=== PATIENT | female | born 1975 | race Caucasian/White ===

== ENCOUNTER 2017-07-20 06:54 | Emergency (ER) | payer MEDICAID | END 2017-07-20 08:45 | disposition home or self-care (01) | LOC: FTE 06:54 | DX: B86 Scabies (principal); J45.909 Unspecified asthma, uncomplicated | CPT/HCPCS: 99283; Z7502 ==

== ENCOUNTER 2018-01-26 10:18 | Emergency (ER) | payer MEDICAID ==
[2018-01-26] MEDS: ONDANSETRON 4 MG INJ IV (11:23)
[2018-01-26] MEDS: morphine 4 MG/ML VIAL IV (11:24)
[2018-01-26 11:42] LABS: ADD MAN DIFF? NO
[2018-01-26 11:50] LABS: BASOPHILS % 0.8 % (0.0-2.0); EOSINOPHILS # 0.2 10^3/ul (0.0-0.5); EOSINOPHILS % 4.6 % (0.0-7.0); HEMATOCRIT 33.5 % (37.0-47.0); HEMOGLOBIN 10.3 g/dl (12.0-16.0); IMMATURE GRANS #M 0.01 10^3/ul; IMMATURE GRANS % (M) 0.2 %; LYMPHOCYTES # 1.8 10^3/ul (0.8-2.9); LYMPHOCYTES % 35.4 % (15.0-51.0); MEAN CORPUSCULAR HEMOGLOBIN 24.2 pg (29.0-33.0); MEAN CORPUSCULAR HGB CONC 30.7 g/dl (32.0-37.0); MEAN CORPUSCULAR VOLUME 78.6 fl (82.0-101.0); MEAN PLATELET VOLUME 11.8 fl (7.4-10.4); MONOCYTE # 0.5 10^3/ul (0.3-0.9); MONOCYTES % 10.9 % (0.0-11.0); NEUTROPHIL # 2.4 10^3/ul (1.6-7.5); NEUTROPHILS % 48.1 % (39.0-77.0); PLATELET COUNT 255 10^3/UL (140-415); RED BLOOD COUNT 4.26 10^6/ul (4.20-5.40); RED CELL DISTRIBUTION WIDTH 15.7 % (11.5-14.5)
[2018-01-26 12:04] LABS: ADD UMIC YES; UR ASCORBIC ACID NEGATIVE (NEGATIVE); UR BACTERIA FEW /HPF (NONE SEEN); UR BILIRUBIN (Dip) NEGATIVE (NEGATIVE); UR BLOOD (Dip) NEGATIVE (NEGATIVE); UR CLARITY SLIGHTLY CLOUDY (CLEAR); UR COLOR YELLOW (YELLOW); UR GLUCOSE (Dip) NEGATIVE (NEGATIVE); UR KETONES (Dip) NEGATIVE (NEGATIVE); UR LEUKOCYTE ESTERASE (Dip) 2+ Leu/ul (NEGATIVE); UR MUCUS MANY /HPF (NONE SEEN); UR NITRITE (Dip) NEGATIVE (NEGATIVE); UR RBC 5 /HPF (0-5); UR SPECIFIC GRAVITY (Dip) 1.025 (1.003-1.030); UR SQUAMOUS EPITHELIAL CELL MODERATE /HPF (FEW); UR TOTAL PROTEIN (Dip) NEGATIVE (NEGATIVE); UR UROBILINOGEN (Dip) NEGATIVE (NEGATIVE); UR WBC 4 /HPF (0-5)
[2018-01-26 12:15] LABS: ALANINE AMINOTRANSFERASE 20 IU/L (13-69); ALBUMIN 3.9 g/dl (3.3-4.9); ALBUMIN/GLOBULIN RATIO 1.25; ALKALINE PHOSPHATASE 69 IU/L (42-121); ANION GAP 13 (8-16); ASPARTATE AMINO TRANSFERASE 29 IU/L (15-46); BILIRUBIN,INDIRECT 0.3 mg/dl (0-1.1); BILIRUBIN,TOTAL 0.3 mg/dl (0.2-1.3); BLOOD UREA NITROGEN 15 mg/dl (7-20); CARBON DIOXIDE 26 mmol/L (21-31); CHLORIDE 108 mmol/L (97-110); CREATININE 0.79 mg/dl (0.44-1.00); GLUCOSE 86 mg/dl (70-220); LIPASE 65 U/L (23-300); SODIUM 143 mmol/L (135-144)
[2018-01-26] MEDS: SOD CHLORIDE 0.9% 100 ML (12:21)
[2018-01-26] MEDS: IOHEXOL 300MG/ML 150 ML BTL (12:21)
== END 2018-01-26 14:32 | disposition home or self-care (01) ==
LOC: FTE 10:18
DX: D25.1 Intramural leiomyoma of uterus (principal); J45.909 Unspecified asthma, uncomplicated
CPT/HCPCS: 36415; 74177; 80053; 81001; 81025; 83690; 84703; 85025; 96374; 96375; 99285-25

== ENCOUNTER 2018-02-26 10:28 | Emergency (ER) | payer MEDICAID ==
[2018-02-26] MEDS: KETOROLAC 60 MG INJ IM (12:56)
[2018-02-26] MEDS: ONDANSETRON (ODT) 4 MG TAB ODT (12:56)
== END 2018-02-26 13:25 | disposition home or self-care (01) ==
LOC: FTE 10:28
DX: R51 Headache (principal); R11.2 Nausea with vomiting, unspecified; J45.909 Unspecified asthma, uncomplicated
CPT/HCPCS: 70450; 81025; 96372; 99285-25

== ENCOUNTER 2018-08-10 09:56 | Emergency (ER) | payer MEDICAID ==
[2018-08-10] MEDS: KETOROLAC 60 MG INJ IM (11:48)
== END 2018-08-10 13:25 | disposition home or self-care (01) ==
LOC: FTE 09:56
DX: M25.562 Pain in left knee (principal); M25.561 Pain in right knee; J45.909 Unspecified asthma, uncomplicated
CPT/HCPCS: 73562; 73562-50; 81025; 96372; 99284-25

== ENCOUNTER 2018-11-10 15:37 | Emergency (ER) | payer MEDICAID ==
[2018-11-10] MEDS: DEXAMETHASONE 10 MG/ML 1 ML INJ IM (16:04)
[2018-11-10 16:30] LABS: ADD MAN DIFF? NO
[2018-11-10 16:31] LABS: WHITE BLOOD COUNT 5.4 10^3/ul (4.8-10.8)
[2018-11-10 16:31] LABS: BASOPHILS % 0.7 % (0.0-2.0); EOSINOPHILS # 0.3 10^3/ul (0.0-0.5); EOSINOPHILS % 5.4 % (0.0-7.0); HEMATOCRIT 39.4 % (37.0-47.0); HEMOGLOBIN 12.8 g/dl (12.0-16.0); LYMPHOCYTES # 1.7 10^3/ul (0.8-2.9); LYMPHOCYTES % 30.6 % (15.0-51.0); MEAN CORPUSCULAR HEMOGLOBIN 28.8 pg (29.0-33.0); MEAN CORPUSCULAR HGB CONC 32.5 g/dl (32.0-37.0); MEAN CORPUSCULAR VOLUME 88.5 fl (82.0-101.0); MEAN PLATELET VOLUME 11.3 fl (7.4-10.4); MONOCYTE # 0.5 10^3/ul (0.3-0.9); MONOCYTES % 8.9 % (0.0-11.0); NEUTROPHIL # 2.9 10^3/ul (1.6-7.5); NEUTROPHILS % 54.2 % (39.0-77.0); PLATELET COUNT 220 10^3/UL (140-415); RED BLOOD COUNT 4.45 10^6/ul (4.20-5.40); RED CELL DISTRIBUTION WIDTH 13.5 % (11.5-14.5)
[2018-11-10 16:50] LABS: INR 0.91; PROTIME 12.4 Sec (11.9-14.9)
[2018-11-10 16:51] LABS: PARTIAL THROMBOPLASTIN TIME 28.8 Sec (23.0-35.0)
[2018-11-10 17:01] LABS: ALANINE AMINOTRANSFERASE 17 IU/L (13-69); ALBUMIN 3.8 g/dl (3.3-4.9); ALBUMIN/GLOBULIN RATIO 1.26; ALKALINE PHOSPHATASE 70 IU/L (42-121); ANION GAP 8 (5-13); ASPARTATE AMINO TRANSFERASE 24 IU/L (15-46); BILIRUBIN,INDIRECT 0.4 mg/dl (0-1.1); BILIRUBIN,TOTAL 0.4 mg/dl (0.2-1.3); BLOOD UREA NITROGEN 13 mg/dl (7-20); CALCIUM 9.2 mg/dl (8.4-10.2); CARBON DIOXIDE 22 mmol/L (21-31); CHLORIDE 111 mmol/L (97-110); CREATININE 0.61 mg/dl (0.44-1.00); Estimated GFR > 60 mL/min (>60); GLUCOSE 81 mg/dl (70-220); POTASSIUM 3.9 mmol/L (3.5-5.1); SODIUM 141 mmol/L (135-144); TOTAL PROTEIN 6.8 g/dl (6.1-8.1)
== END 2018-11-10 18:08 | disposition home or self-care (01) ==
LOC: FTE 15:37
DX: R21 Rash and other nonspecific skin eruption (principal); J45.909 Unspecified asthma, uncomplicated
CPT/HCPCS: 80053; 85025; 85610; 85730; 96372; 99284-25

== ENCOUNTER 2018-11-20 05:47 | Emergency (ER) | payer MEDICAID ==
[2018-11-20] MEDS: ALBUTEROL 0.083% (NEB) 2.5 MG/3 ML AMP HHN (06:22)
[2018-11-20] MEDS: IPRATROPIUM (NEB) 0.5 MG/2.5 ML AMP HHN (06:22)
[2018-11-20] MEDS: METHYLPREDNISOLONE 125 MG INJ IV (06:41)
[2018-11-20] MEDS: IBUPROFEN 800 MG TAB PO (06:49)
[2018-11-20] MEDS: KETOROLAC 30 MG INJ IV (07:00)
== END 2018-11-20 07:36 | disposition home or self-care (01) ==
LOC: FTE 05:47
DX: J45.901 Unspecified asthma with (acute) exacerbation (principal)
CPT/HCPCS: 81025; 94664; 96374; 96375; 99284-25

== ENCOUNTER 2019-01-01 16:06 | Emergency (ER) | payer MEDICAID ==
[2019-01-01] MEDS: ONDANSETRON 4 MG INJ IV (17:30)
[2019-01-01] MEDS: morphine 2 MG INJ IV (17:30)
[2019-01-01] MEDS: FAMOTIDINE 20 MG TAB PO (17:30)
[2019-01-01] MEDS: SOD CHLORIDE 0.9% 1,000 ML IV (17:30)
[2019-01-01 17:41] LABS: URINE BLOOD (Dip) POC Negative (NEGATIVE); URINE GLUCOSE (Dip) POC Negative (NEGATIVE); URINE KETONES (Dip) POC 1+ (NEGATIVE); URINE LEUKOCYTE EST (Dip) POC Negative (NEGATIVE); URINE NITRITE (Dip) POC Negative (NEGATIVE); URINE TOTAL PROTEIN POC Trace (NEGATIVE)
[2019-01-01 17:55] LABS: ADD MAN DIFF? NO
[2019-01-01 17:57] LABS: WHITE BLOOD COUNT 6.6 10^3/ul (4.8-10.8)
[2019-01-01 17:57] LABS: BASOPHIL # 0.1 10^3/ul (0.0-0.1); BASOPHILS % 0.8 % (0.0-2.0); EOSINOPHILS # 0.3 10^3/ul (0.0-0.5); EOSINOPHILS % 4.9 % (0.0-7.0); HEMATOCRIT 36.8 % (37.0-47.0); LYMPHOCYTES % 30.1 % (15.0-51.0); MEAN CORPUSCULAR HEMOGLOBIN 29.6 pg (29.0-33.0); MEAN CORPUSCULAR HGB CONC 32.6 g/dl (32.0-37.0); MEAN CORPUSCULAR VOLUME 90.6 fl (82.0-101.0); MEAN PLATELET VOLUME 11.8 fl (7.4-10.4); MONOCYTE # 0.7 10^3/ul (0.3-0.9); MONOCYTES % 10.1 % (0.0-11.0); NEUTROPHIL # 3.5 10^3/ul (1.6-7.5); NEUTROPHILS % 53.8 % (39.0-77.0); PLATELET COUNT 184 10^3/UL (140-415); RED BLOOD COUNT 4.06 10^6/ul (4.20-5.40); RED CELL DISTRIBUTION WIDTH 13.4 % (11.5-14.5)
[2019-01-01 18:28] LABS: ALANINE AMINOTRANSFERASE 22 IU/L (13-69); ALBUMIN 3.8 g/dl (3.3-4.9); ALBUMIN/GLOBULIN RATIO 1.22; ALKALINE PHOSPHATASE 63 IU/L (42-121); ANION GAP 6 (5-13); ASPARTATE AMINO TRANSFERASE 26 IU/L (15-46); BILIRUBIN,INDIRECT 0.5 mg/dl (0-1.1); BILIRUBIN,TOTAL 0.5 mg/dl (0.2-1.3); BLOOD UREA NITROGEN 20 mg/dl (7-20); CALCIUM 9.4 mg/dl (8.4-10.2); CARBON DIOXIDE 29 mmol/L (21-31); CHLORIDE 103 mmol/L (97-110); CREATININE 0.75 mg/dl (0.44-1.00); Estimated GFR > 60 mL/min (>60); GLUCOSE 83 mg/dl (70-220); LIPASE 121 U/L (23-300); POTASSIUM 4.3 mmol/L (3.5-5.1); SODIUM 138 mmol/L (135-144); TOTAL PROTEIN 6.9 g/dl (6.1-8.1)
[2019-01-01] MEDS: KETOROLAC 30 MG INJ IV (19:46)
== END 2019-01-01 20:12 | disposition home or self-care (01) ==
LOC: E/R 16:06
DX: R10.13 Epigastric pain (principal); R19.09 Other intra-abdominal and pelvic swelling, mass and lump; D21.9 Benign neoplasm of connective and other soft tissue, unspecified; J45.909 Unspecified asthma, uncomplicated
CPT/HCPCS: 36415; 74176; 80053; 81003; 81025; 83690; 85025; 96374; 96375; 99285-25

== ENCOUNTER 2019-02-18 10:39 | Emergency (ER) | payer MEDICAID ==
[2019-02-18] MEDS: LIDOCAINE/MYLANTA 40 ML BTL PO (11:24)
[2019-02-18] MEDS: PANTOPRAZOLE (EC) 40 MG TAB PO (11:24)
== END 2019-02-18 13:00 | disposition home or self-care (01) ==
LOC: E/R 10:39
DX: R10.13 Epigastric pain (principal); J45.909 Unspecified asthma, uncomplicated
CPT/HCPCS: 81025; 99283